=== PATIENT | female | born 1970 | race African-American/Black ===

== ENCOUNTER 2022-07-17 22:38 | Emergency (ER) | payer OTHER ==
[~2022-07-17 22:38] MED LIST: ASPI81TA87 PO; ATEN-187 PO; CETI10TA58 PO; CLON0.1T PO; HYDR25TA PO
== END 2022-07-17 23:26 | disposition left against medical advice (07) ==
LOC: EMS 23:26
DX: Z53.21 Procedure and treatment not carried out due to patient leaving prior to being seen by health care provider (principal)